=== PATIENT | male | born 1940 | race Caucasian/White ===

== ENCOUNTER 2019-02-27 15:53 | Inpatient (IN) ==
[2019-02-27] MEDS ORDERED: MAGNESIUM SULF RIDER 2 GM in PREMIX 1 EACH IV PRN (16:55)
[2019-02-27] MEDS ORDERED: POTASSIUM CHLORIDE 20 MEQ TABLET PO PRN (16:55)
[2019-02-27] MEDS ORDERED: ONDANSETRON 4 MG/2 ML VIAL IV PRN (16:55)
[2019-02-27] MEDS ORDERED: MORPHINE 4 MG/1 ML VIAL IV PRN (16:55)
[2019-02-27] MEDS ORDERED: BISACODYL 5 MG TABLET PO PRN (16:55)
[2019-02-27] MEDS ORDERED: ZALEPLON 5 MG CAPSULE PO PRN (16:55)
[2019-02-27] MEDS ORDERED: diphenhydrAMINE CAP 25 MG CAPSULE PO PRN (16:55)
[2019-02-27] MEDS ORDERED: MAGNESIUM SULF RIDER 4 GM in PREMIX 1 EACH IV PRN (16:55)
[2019-02-27] MEDS ORDERED: guaiFENesin/DM ER 600-30 MG TABLET PO PRN (16:55)
[2019-02-27] MEDS ORDERED: ACETAMINOPHEN 325 MG TABLET PO PRN (16:55)
[2019-02-27] MEDS ORDERED: LEUPROLIDE 30 MG IM SCH (17:15)
[2019-02-27 17:58] LABS: Troponin I < 0.015 NG/ML (0.00-0.045)
[2019-02-27] MEDS: PANTOPRAZOLE 40 MG TABLET PO SCH (18:27)
[2019-02-27 20:16] LABS: Troponin I < 0.015 NG/ML (0.00-0.045)
[2019-02-27] MEDS: ROSUVASTATIN 10 MG TABLET PO SCH (20:22)
[2019-02-27] MEDS: AMIODARONE 200 MG TABLET PO SCH (20:22)
[2019-02-27] MEDS: CLORAZEPATE 7.5 MG TABLET PO SCH (20:22)
[2019-02-27] MEDS: predniSONE 5 MG TABLET PO SCH (20:22)
[2019-02-27] MEDS: APIXABAN 5 MG TABLET PO SCH (20:23)
[2019-02-27] MEDS: DOCUSATE SODIUM 100 MG CAPSULE PO PRN (20:23)
[2019-02-27 23:25] LABS: Troponin I < 0.015 NG/ML (0.00-0.045)
[2019-02-28 05:02] LABS: Basophils % 0.4 % (0.0-0.8); Eosinophils # 0.2 10*3/uL (0.0-0.87); Eosinophils % 2.8 % (0.00-10.9); Hematocrit 40.8 VOL% (42.0-52.0); Hemoglobin 13.8 GM/DL (14.0-18.0); Immature Granulocytes % 0.4 %; Immature Granulocytes Absolute 0.03 #; Lymphocytes # 1.3 10*3/uL (1.4-4.0); Lymphocytes % 18.4 % (21.2-54.2); Mean Corpuscular HGB Conc 33.8 GM/DL (32-36); Mean Corpuscular Volume 98.1 FL (87-102); Mean Platelet Volume 10.3 FL (9.6-12.0); Monocytes % 8.5 % (1.7-12.7); Neutrophils % 69.5 % (38.7-73.9); Platelet Count 149 T/CUMM (130-400); Red Blood Count 4.16 MC/CUMM (3.8-5.5); Red Cell Distribution Width 14.3 % (9.3-17.3); White Blood Count 7.2 T/CUMM (4-12)
[2019-02-28 05:40] LABS: Bilirubin,Total 1.2 MG/DL (0.2-1.0); Calcium 8.6 MG/DL (8.5-10.1); Osmolality,Calculated 282.1 MOS/KG (273-304); Risk Ratio 2.47; Total Protein 5.7 G/DL (6.4-8.3)
[2019-02-28] MEDS ORDERED: POTASSIUM CHLORIDE RIDER 10 MEQ in PREMIX 1 EACH IV PRN (07:13)
[2019-02-28] MEDS ORDERED: MAGNESIUM SULF RIDER 2 GM in PREMIX 1 EACH IV PRN (07:13)
[2019-02-28] MEDS: SODIUM CHLORIDE 0.9% 1,000 ML IV SCH ×3 (07:57→23:31)
[2019-02-28] MEDS ORDERED: DIAZEPAM 5 MG TABLET PO ONE (10:09)
[2019-02-28] MEDS ORDERED: diphenhydrAMINE CAP 25 MG CAPSULE PO PRN (10:10)
[2019-02-28] MEDS ORDERED: LIDOCAINE 1% 20 ML VIAL ONE (12:57)
[2019-02-28] MEDS ORDERED: HEPARIN/NACL 0.9% 2 UNITS/ML 1,000 ML IV ONE (12:57)
[2019-02-28] MEDS: APIXABAN 5 MG TABLET PO SCH (13:25)
[2019-02-28] MEDS: DOCUSATE SODIUM 100 MG CAPSULE PO PRN ×2 (13:25→20:27)
[2019-02-28] MEDS: AMIODARONE 200 MG TABLET PO SCH ×2 (13:26→20:27)
[2019-02-28] MEDS: predniSONE 5 MG TABLET PO SCH ×2 (13:26→20:27)
[2019-02-28] MEDS: PANTOPRAZOLE 40 MG TABLET PO SCH (13:26)
[2019-02-28] MEDS: ASPIRIN EC 81 MG TABLET PO SCH (13:26)
[2019-02-28] MEDS: Abiraterone [Zytiga] 1,000 MG PO SCH (13:34)
[2019-02-28] MEDS ORDERED: HYDROmorphone 2 MG/1 ML VIAL ONE (13:54)
[2019-02-28] MEDS ORDERED: MIDAZOLAM 2 MG/2 ML VIAL ONE (13:54)
[2019-02-28] MEDS: BUMETANIDE 1 MG TABLET PO SCH (16:51)
[2019-02-28] MEDS: ROSUVASTATIN 10 MG TABLET PO SCH (20:27)
[2019-02-28] MEDS: CLORAZEPATE 7.5 MG TABLET PO SCH (20:27)
[2019-03-01] MEDS: SODIUM CHLORIDE 0.9% 1,000 ML IV SCH ×3 (00:40→16:55)
[2019-03-01 03:54] LABS: Basophils % 0.4 % (0.0-0.8); Eosinophils # 0.3 10*3/uL (0.0-0.87); Eosinophils % 2.6 % (0.00-10.9); Hematocrit 40.9 VOL% (42.0-52.0); Hemoglobin 13.8 GM/DL (14.0-18.0); Immature Granulocytes % 0.5 %; Immature Granulocytes Absolute 0.05 #; Lymphocytes # 0.9 10*3/uL (1.4-4.0); Lymphocytes % 8.8 % (21.2-54.2); Mean Corpuscular HGB Conc 33.7 GM/DL (32-36); Mean Corpuscular Volume 97.4 FL (87-102); Neutrophils % 79.7 % (38.7-73.9); Platelet Count 148 T/CUMM (130-400); White Blood Count 10.1 T/CUMM (4-12)
[2019-03-01 04:12] LABS: Calcium 8.5 MG/DL (8.5-10.1); Osmolality,Calculated 281.3 MOS/KG (273-304)
[2019-03-01] MEDS ORDERED: HEPARIN 5,000 UNIT/1 ML VIAL IV ONE (07:01)
[2019-03-01] MEDS: BUMETANIDE 1 MG TABLET PO SCH (08:28)
[2019-03-01] MEDS: PANTOPRAZOLE 40 MG TABLET PO SCH (08:29)
[2019-03-01] MEDS: AMIODARONE 200 MG TABLET PO SCH ×2 (08:30→20:21)
[2019-03-01] MEDS: predniSONE 5 MG TABLET PO SCH ×2 (08:30→20:21)
[2019-03-01] MEDS: ASPIRIN EC 81 MG TABLET PO SCH (08:30)
[2019-03-01] MEDS: HEPARIN DRIP 25,000 UNITS/500 ML PREMIX IV SCH (08:32)
[2019-03-01] MEDS: Abiraterone [Zytiga] 1,000 MG PO SCH (09:19)
[2019-03-01] MEDS: HEPARIN 5,000 UNIT/1 ML VIAL IV PRN (13:45)
[2019-03-01] MEDS: DOCUSATE SODIUM 100 MG CAPSULE PO PRN (20:21)
[2019-03-01] MEDS: CLORAZEPATE 7.5 MG TABLET PO SCH (20:21)
[2019-03-01] MEDS: ROSUVASTATIN 10 MG TABLET PO SCH (20:21)
[2019-03-02] MEDS: SODIUM CHLORIDE 0.9% 1,000 ML IV SCH ×3 (00:39→08:39)
[2019-03-02] MEDS: HEPARIN 5,000 UNIT/1 ML VIAL IV PRN (01:27)
[2019-03-02 03:46] LABS: Basophils % 0.3 % (0.0-0.8); Eosinophils # 0.5 10*3/uL (0.0-0.87); Eosinophils % 6.2 % (0.00-10.9); Hematocrit 39.5 VOL% (42.0-52.0); Hemoglobin 12.8 GM/DL (14.0-18.0); Immature Granulocytes % 0.3 %; Immature Granulocytes Absolute 0.03 #; Lymphocytes # 0.9 10*3/uL (1.4-4.0); Lymphocytes % 10.8 % (21.2-54.2); Mean Corpuscular HGB Conc 32.4 GM/DL (32-36); Mean Platelet Volume 9.5 FL (9.6-12.0); Monocytes % 7.5 % (1.7-12.7); Neutrophils % 74.9 % (38.7-73.9); Platelet Count 139 T/CUMM (130-400); Red Blood Count 3.99 MC/CUMM (3.8-5.5); Red Cell Distribution Width 14.1 % (9.3-17.3); White Blood Count 8.7 T/CUMM (4-12)
[2019-03-02 04:03] LABS: Calcium 8.2 MG/DL (8.5-10.1); Osmolality,Calculated 287.8 MOS/KG (273-304)
[2019-03-02] MEDS: HEPARIN DRIP 25,000 UNITS/500 ML PREMIX IV SCH ×2 (08:06→11:25)
[2019-03-02] MEDS: predniSONE 5 MG TABLET PO SCH ×2 (08:40→20:29)
[2019-03-02] MEDS: PANTOPRAZOLE 40 MG TABLET PO SCH (08:40)
[2019-03-02] MEDS: AMIODARONE 200 MG TABLET PO SCH ×2 (08:40→20:29)
[2019-03-02] MEDS: BUMETANIDE 1 MG TABLET PO SCH (08:40)
[2019-03-02] MEDS: ASPIRIN EC 81 MG TABLET PO SCH (08:40)
[2019-03-02] MEDS: Abiraterone [Zytiga] 1,000 MG PO SCH (11:33)
[2019-03-02] MEDS: CHLORHEXIDINE 4% SOLN 118 ML BOTTLE TOP SCH ×2 (16:23→20:29)
[2019-03-02] MEDS: CLORAZEPATE 7.5 MG TABLET PO SCH (20:29)
[2019-03-02] MEDS: ROSUVASTATIN 10 MG TABLET PO SCH (20:29)
[2019-03-03] MEDS: CHLORHEXIDINE 0.12% ORAL RINSE 60 ML BOTTLE SWISH/SPIT SCH ×3 (00:34→22:00)
[2019-03-03] MEDS ORDERED: PAPAVERINE 60 MG/2 ML VIAL ONE (04:27)
[2019-03-03] MEDS ORDERED: TISSUE ADHESIVE 1 EACH APPLICATOR TOP ONE (04:27)
[2019-03-03] MEDS ORDERED: VANCOMYCIN 1,000 MG VIAL ONE (04:27)
[2019-03-03 05:08] LABS: Basophils % 0.4 % (0.0-0.8); Eosinophils # 0.5 10*3/uL (0.0-0.87); Eosinophils % 6.1 % (0.00-10.9); Hematocrit 41.3 VOL% (42.0-52.0); Hemoglobin 13.5 GM/DL (14.0-18.0); Immature Granulocytes % 0.6 %; Immature Granulocytes Absolute 0.05 #; Lymphocytes # 0.9 10*3/uL (1.4-4.0); Mean Corpuscular HGB Conc 32.7 GM/DL (32-36); Mean Corpuscular Volume 99.5 FL (87-102); Monocytes % 7.6 % (1.7-12.7); Neutrophils % 74.3 % (38.7-73.9); Platelet Count 149 T/CUMM (130-400); Red Blood Count 4.15 MC/CUMM (3.8-5.5); Red Cell Distribution Width 14.3 % (9.3-17.3); White Blood Count 8.5 T/CUMM (4-12)
[2019-03-03] MEDS ORDERED: CEFUROXIME INJ 1,500 MG in SYRINGE 1 EACH IV ONE (06:00)
[2019-03-03] MEDS ORDERED: PHENYLEPHRINE DRIP 20 MG/250 ML PREMIX IV ONE ×2 (06:05→15:54)
[2019-03-03] MEDS ORDERED: HEPARIN/NACL 0.9% 2 UNITS/ML 500 ML IV ONE ×2 (06:05→15:54)
[2019-03-03] MEDS ORDERED: NITROGLYCERIN DRIP 50 MG/250 ML BOTTLE IV ONE ×2 (06:06→15:56)
[2019-03-03 08:06] LABS: ABG Base Excess 3.6 MMOL/L (-2.5-2.5); ABG HCO3 28.4 MMOL/L (20-26); ABG Oxygen Saturation 95.6 % (95-100); ABG PCO2 43.3 MM HG (35-48); ABG PH 7.434 (7.35-7.45); ABG TCO2 29.7 MMOL/L (23-27); Allen Test Positive
[2019-03-03] MEDS ORDERED: SODIUM BICARBONATE 50 MEQ/50 ML VIAL IV ONE ×2 (08:09→15:33)
[2019-03-03] MEDS ORDERED: PHENYLEPHRINE DRIP 40 MG/250 ML PREMIX IV ONE (08:09)
[2019-03-03] MEDS ORDERED: LIDOCAINE 100 MG/5 ML SYRINGE ONE (08:10)
[2019-03-03] MEDS ORDERED: POTASSIUM CHLORIDE RIDER 100 ML IV ONE (08:10)
[2019-03-03] MEDS ORDERED: CALCIUM CHLORIDE 1,000 MG/10 ML SYRINGE IV ONE (08:10)
[2019-03-03] MEDS ORDERED: EPINEPHrine 1 MG/10 ML SYRINGE ONE (08:10)
[2019-03-03] MEDS ORDERED: ALBUMIN 5% 12.5 GM/250 ML VIAL IV ONE (08:10)
[2019-03-03] MEDS ORDERED: ATROPINE 1 MG/10 ML SYRINGE ONE (08:10)
[2019-03-03] MEDS ORDERED: ALBUTEROL/IPRATROPIUM 3 ML NEB RESP TX ONE (08:44)
[2019-03-03] MEDS: ASPIRIN EC 81 MG TABLET PO SCH (08:54)
[2019-03-03] MEDS: BUMETANIDE 1 MG TABLET PO SCH (08:55)
[2019-03-03] MEDS: Abiraterone [Zytiga] 1,000 MG PO SCH (08:57)
[2019-03-03] MEDS: predniSONE 5 MG TABLET PO SCH (08:57)
[2019-03-03] MEDS: PANTOPRAZOLE 40 MG TABLET PO SCH (08:57)
[2019-03-03] MEDS: CHLORHEXIDINE 4% SOLN 118 ML BOTTLE TOP SCH (09:15)
[2019-03-03] MEDS ORDERED: DIAZEPAM 5 MG TABLET PO ONE (10:00)
[2019-03-03] MEDS: AMIODARONE 200 MG TABLET PO SCH (10:34)
[2019-03-03] MEDS: SODIUM CHLORIDE 0.9% 1,000 ML IV SCH ×2 (11:01→18:36)
[2019-03-03] MEDS ORDERED: CEFUROXIME INJ 1,500 MG in SYRINGE 1 EACH IV SCH (11:30)
[2019-03-03 12:37] LABS: ABG Base Excess 3.5 MMOL/L (-2.5-2.5); ABG HCO3 27.5 MMOL/L (20-26); ABG Oxygen Saturation 99.8 % (95-100); ABG PCO2 40.3 MM HG (35-48); ABG PH 7.445 (7.35-7.45); ABG TCO2 23.9 MMOL/L (23-27); Glucose Heart Surgery 97 MG/DL (74-106); Hematocrit Heart Surgery 41.6 PERCENT (42-52); Hemoglobin Heart Surgery 13.5 G/DL (14.0-18.0); Ionized Calcium Arterial 1.29 MMOL/L (1.21-1.46); PCO2 Patient Temp Arterial 40.3 MMHG; PH Patient Temp Arterial 7.445; Patient Temperature 37 CELCIUS; Potassium Heart/CVR 3.8 MMOL/L (3.5-5.1); Sodium Heart/CVR 139 MMOL/L (135-145)
[2019-03-03 13:46] LABS: Apearance,Urine Slightly Hazy (Clear); Bilirubin,Urine Negative (Negative); Blood, Urine Moderate mg/dL (Negative); Glucose,Urine (UA) Negative (Negative); Ketones,Urine Negative (Negative); Nitrite,Urine Negative (Negative); Protein,Urine Negative; RBC,Urine 16 /HPF (0-4); Urine Color Yellow (Yellow); Urine Specific Gravity 1.011 (1.001-1.035); Urine Urobilinogen < 2.0 EU/DL (0.2-1.0); WBC,Urine 137 /HPF (0-6)
[2019-03-03 14:14] LABS: Glucose Heart Surgery 261 MG/DL (74-106); Hemoglobin Heart Surgery 10.3 G/DL (14.0-18.0); Potassium Heart/CVR 4.2 MMOL/L (3.5-5.1); Sodium Heart/CVR 130 MMOL/L (135-145); VBG Base Excess 3.4 MEQ/L (0-4); VBG HCO3 26.4 MEQ/L (24-28); VBG Oxygen Saturation 83.2 %; VBG PH 7.508; VBG PO2 43.3 MMHG (17-40)
[2019-03-03 14:44] LABS: Hematocrit Heart Surgery 27.7 PERCENT (42-52); Hemoglobin Heart Surgery 8.9 G/DL (14.0-18.0); PCO2 Patient Temp Venous 32.7 MM HG; PH Patient Temp Venous 7.521; PO2 Patient Temp Venous 28.7 MM HG; Potassium Heart/CVR 4.4 MMOL/L (3.5-5.1); VBG Base Excess 4.2 MEQ/L (0-4); VBG HCO3 27.8 MEQ/L (24-28); VBG Oxygen Saturation 76.4 %; VBG PCO2 39.6 MMHG (41-51); VBG PH 7.461
[2019-03-03 15:15] LABS: Hematocrit Heart Surgery 30.1 PERCENT (42-52); Hemoglobin Heart Surgery 9.7 G/DL (14.0-18.0); PCO2 Patient Temp Venous 40.9 MM HG; PH Patient Temp Venous 7.451; PO2 Patient Temp Venous 43.2 MM HG; Potassium Heart/CVR 4.6 MMOL/L (3.5-5.1); VBG Base Excess 4.2 MEQ/L (0-4); VBG HCO3 27.9 MEQ/L (24-28); VBG Oxygen Saturation 81.8 %; VBG PCO2 40.9 MMHG (41-51); VBG PH 7.451; VBG PO2 43.2 MMHG (17-40)
[2019-03-03] MEDS ORDERED: DEXTROSE 5% KCL 20 MEQ 40 MEQ/2,000 ML BAG IV ONE (15:32)
[2019-03-03] MEDS ORDERED: methylPREDNISolone SOD SUC 1,000 MG/8 ML VIAL ONE (15:33)
[2019-03-03] MEDS ORDERED: MANNITOL 12.5 GM/50 ML VIAL IV ONE (15:33)
[2019-03-03] MEDS ORDERED: HEPARIN 10,000 UNIT/10 ML VIAL ONE ×2 (15:33→15:55)
[2019-03-03] MEDS ORDERED: PROTAMINE SULFATE 250 MG/25 ML VIAL IV ONE (15:33)
[2019-03-03] MEDS ORDERED: FUROSEMIDE 20 MG/2 ML VIAL ONE (15:33)
[2019-03-03] MEDS ORDERED: MAGNESIUM SULFATE 5 GM/10 ML VIAL IV ONE (15:33)
[2019-03-03] MEDS ORDERED: ALBUMIN 25% 25 GM/100 ML VIAL IV ONE (15:33)
[2019-03-03 15:43] LABS: ABG Base Excess -0.4 MMOL/L (-2.5-2.5); ABG HCO3 24.1 MMOL/L (20-26); ABG Oxygen Saturation 99.6 % (95-100); ABG PCO2 33.1 MM HG (35-48); ABG TCO2 20.9 MMOL/L (23-27); Glucose Heart Surgery 268 MG/DL (74-106); Hematocrit Heart Surgery 30.7 PERCENT (42-52); Hemoglobin Heart Surgery 9.9 G/DL (14.0-18.0); Ionized Calcium Arterial 1.38 MMOL/L (1.21-1.46); PCO2 Patient Temp Arterial 33.1 MMHG; Patient Temperature 37 CELCIUS; Potassium Heart/CVR 3.9 MMOL/L (3.5-5.1); Sodium Heart/CVR 132 MMOL/L (135-145)
[2019-03-03] MEDS ORDERED: THROMBIN TOPICAL (RECOMBINANT) 5,000 UNIT VIAL TOP ONE (15:46)
[2019-03-03] MEDS ORDERED: CALCIUM CHLORIDE 1,000 MG/10 ML VIAL IV ONE (15:54)
[2019-03-03] MEDS ORDERED: MIDAZOLAM 10 MG/2 ML VIAL ONE (15:55)
[2019-03-03] MEDS ORDERED: ePHEDrine 50 MG/ML AMP ONE ×2 (15:55→16:37)
[2019-03-03] MEDS ORDERED: MINERAL OIL/PETROLATUM OPH OINT 3.5 GM TUBE ONE (15:55)
[2019-03-03] MEDS ORDERED: ETOMIDATE 40 MG/20 ML VIAL IV ONE (15:56)
[2019-03-03] MEDS ORDERED: SODIUM CHLORIDE 0.9% 250 ML IV ONE (15:56)
[2019-03-03] MEDS ORDERED: SODIUM CHLORIDE 0.9% 1,000 ML IV ONE (15:56)
[2019-03-03] MEDS ORDERED: PHENYLEPHRINE 1 MG/10 ML SYRINGE IV ONE (15:56)
[2019-03-03] MEDS ORDERED: LACTATED RINGERS 1,000 ML IV ONE (15:56)
[2019-03-03] MEDS ORDERED: VECURONIUM 10 MG VIAL IV ONE (15:56)
[2019-03-03] MEDS: SODIUM CHLORIDE 0.45% 1,000 ML IV SCH (16:35)
[2019-03-03] MEDS ORDERED: SEVOFLURANE 1 UNIT/15 MINUTE INH ONE (16:37)
[2019-03-03] MEDS: PHENYLEPHRINE DRIP 40 MG/250 ML PREMIX IV PRN (16:40)
[2019-03-03] MEDS: SODIUM CHLORIDE 0.9% 1,000 ML IV PRN ×2 (16:52→18:19)
[2019-03-03] MEDS ORDERED: ACETAMINOPHEN 650 MG SUPP RECTAL PRN (17:12)
[2019-03-03] MEDS ORDERED: INSULIN REGULAR 100 UNIT/ML IV PRN (17:12)
[2019-03-03] MEDS ORDERED: CALCIUM CHLORIDE 1,000 MG/10 ML SYRINGE IV PRN (17:12)
[2019-03-03] MEDS ORDERED: POTASSIUM CHLORIDE RIDER 10 MEQ in PREMIX 1 EACH IV PRN (17:12)
[2019-03-03] MEDS ORDERED: DEXTROSE 10% 250 ML BAG IV PRN ×2 (17:12)
[2019-03-03] MEDS ORDERED: MORPHINE 10 MG/1 ML VIAL IV PRN (17:12)
[2019-03-03] MEDS ORDERED: POTASSIUM CHLORIDE RIDER 20 MEQ in PREMIX 1 EACH IV PRN (17:12)
[2019-03-03] MEDS ORDERED: MAGNESIUM SULF RIDER 2 GM in PREMIX 1 EACH IV PRN (17:12)
[2019-03-03] MEDS ORDERED: MIDAZOLAM 2 MG/2 ML VIAL IV PRN (17:12)
[2019-03-03] MEDS ORDERED: MAGNESIUM SULF RIDER 4 GM in PREMIX 1 EACH IV PRN (17:12)
[2019-03-03] MEDS ORDERED: SODIUM CHLORIDE 0.9% 250 ML IV PRN (17:12)
[2019-03-03] MEDS ORDERED: CHLORHEXIDINE 4% SOLN 118 ML BOTTLE TOP PRN (17:12)
[2019-03-03] MEDS ORDERED: ONDANSETRON 4 MG/2 ML VIAL IV PRN (17:12)
[2019-03-03 17:22] LABS: Basophils % 0.1 % (0.0-0.8); Eosinophils # 0.2 10*3/uL (0.0-0.87); Eosinophils % 1.6 % (0.00-10.9); Hematocrit 35.9 VOL% (42.0-52.0); Hemoglobin 11.7 GM/DL (14.0-18.0); Immature Granulocytes % 0.9 %; Immature Granulocytes Absolute 0.14 #; Lymphocytes # 0.9 10*3/uL (1.4-4.0); Lymphocytes % 6.2 % (21.2-54.2); Mean Corpuscular HGB Conc 32.6 GM/DL (32-36); Mean Corpuscular Volume 100.6 FL (87-102); Mean Platelet Volume 9.8 FL (9.6-12.0); Monocytes % 5.5 % (1.7-12.7); Neutrophils % 85.7 % (38.7-73.9); Platelet Count 180 T/CUMM (130-400); Red Blood Count 3.57 MC/CUMM (3.8-5.5); Red Cell Distribution Width 14.2 % (9.3-17.3); White Blood Count 14.8 T/CUMM (4-12)
[2019-03-03 17:25] LABS: ABG Base Excess -0.7 MMOL/L (-2.5-2.5); ABG HCO3 23.8 MMOL/L (20-26); ABG Oxygen Saturation 95.9 % (95-100); ABG PCO2 46.4 MM HG (35-48); ABG PH 7.346 (7.35-7.45); ABG PO2 87.7 MM HG (80-95); ABG TCO2 22.4 MMOL/L (23-27); Glucose Heart Surgery 258 MG/DL (74-106); Hematocrit Heart Surgery 39.1 PERCENT (42-52); Hemoglobin Heart Surgery 12.7 G/DL (14.0-18.0); Potassium Heart/CVR 3.9 MMOL/L (3.5-5.1)
[2019-03-03 17:30] LABS: INR 1.1; PT Patient Result 11.8 SECS; Partial Thromboplastin Time 28.7 SECS (0-40)
[2019-03-03] MEDS ORDERED: SODIUM CHLORIDE 0.45% 1,000 ML IV SCH (17:30)
[2019-03-03] MEDS ORDERED: CALCIUM GLUCONATE 1,000 MG in SODIUM CHLORIDE 0.9% 100 ML IV ONE ×2 (17:42→18:30)
[2019-03-03 17:44] LABS: Blood Urea Nitrogen 11 MG/DL (7-18); Calcium 9.4 MG/DL (8.5-10.1); Glucose 239 MG/DL (74-106); Osmolality,Calculated 281.7 MOS/KG (273-304)
[2019-03-03] MEDS: ALBUMIN 5% 12.5 GM in PREMIX 1 EACH IV PRN ×4 (17:46→21:36)
[2019-03-03] MEDS ORDERED: INSULIN REGULAR DRIP 100 ML IV PRN (17:58)
[2019-03-03] MEDS ORDERED: ASPIRIN 325 MG TABLET PO ONE (18:03)
[2019-03-03] MEDS: MORPHINE 4 MG/1 ML VIAL IV PRN (18:27)
[2019-03-04] MEDS: PHENYLEPHRINE DRIP 40 MG/250 ML PREMIX IV PRN (00:35)
[2019-03-04] MEDS: CEFUROXIME INJ 1,500 MG in SYRINGE 1 EACH IV SCH ×2 (01:38→12:21)
[2019-03-04 03:43] LABS: Basophils % 0.1 % (0.0-0.8); Hemoglobin 10.4 GM/DL (14.0-18.0); Immature Granulocytes % 0.8 %; Immature Granulocytes Absolute 0.12 #; Lymphocytes # 0.4 10*3/uL (1.4-4.0); Lymphocytes % 2.9 % (21.2-54.2); Mean Corpuscular HGB Conc 32.5 GM/DL (32-36); Mean Corpuscular Volume 100.6 FL (87-102); Mean Platelet Volume 10.2 FL (9.6-12.0); Monocytes % 6.2 % (1.7-12.7); Platelet Count 181 T/CUMM (130-400); Red Blood Count 3.18 MC/CUMM (3.8-5.5); Red Cell Distribution Width 14.4 % (9.3-17.3); White Blood Count 14.7 T/CUMM (4-12)
[2019-03-04 03:53] LABS: Calcium 8.6 MG/DL (8.5-10.1); Osmolality,Calculated 283.1 MOS/KG (273-304)
[2019-03-04 04:28] LABS: Band Neutrophils 3 % (0-10); Lymphocytes 2 % (20-55); Segmented Neutrophils 91 % (50-85); Total Cells Counted 100
[2019-03-04 04:29] LABS: Platelet Estimate Normal
[2019-03-04 04:31] LABS: ABG Base Excess -2.8 MMOL/L (-2.5-2.5); ABG Oxygen Saturation 95.8 % (95-100); ABG PCO2 35.3 MM HG (35-48); ABG PH 7.393 (7.35-7.45); ABG PO2 77.4 MM HG (80-95); ABG TCO2 19.4 MMOL/L (23-27); Glucose Heart Surgery 138 MG/DL (74-106); Hematocrit Heart Surgery 33.9 PERCENT (42-52); Potassium Heart/CVR 4.2 MMOL/L (3.5-5.1)
[2019-03-04] MEDS ORDERED: DIAZEPAM 5 MG TABLET PO ONE (06:00)
[2019-03-04] MEDS: SODIUM CHLORIDE 0.45% 1,000 ML IV SCH ×2 (06:06→08:33)
[2019-03-04] MEDS ORDERED: FUROSEMIDE 40 MG/4 ML VIAL IV ONE (07:02)
[2019-03-04] MEDS ORDERED: LACTATED RINGERS 500 ML IV ONE (08:20)
[2019-03-04] MEDS: INSULIN REGULAR 100 UNIT/ML SUBCUT SCH ×4 (08:30→20:34)
[2019-03-04] MEDS: ASPIRIN EC 325 MG TABLET PO SCH (08:42)
[2019-03-04] MEDS: FAMOTIDINE 20 MG/2 ML VIAL IV SCH ×2 (08:43→20:32)
[2019-03-04] MEDS: CHLORHEXIDINE 0.12% ORAL RINSE 60 ML BOTTLE SWISH/SPIT SCH ×2 (08:44→20:33)
[2019-03-04] MEDS ORDERED: FUROSEMIDE 40 MG TABLET PO SCH (09:00)
[2019-03-04] MEDS ORDERED: ASPIRIN 325 MG TABLET PO SCH (09:00)
[2019-03-04] MEDS: ATORVASTATIN 40 MG TABLET PO SCH (20:32)
[2019-03-04] MEDS ORDERED: diphenhydrAMINE CAP 50 MG CAPSULE PO ONE (20:40)
[2019-03-04] MEDS ORDERED: ALBUTEROL/IPRATROPIUM 3 ML NEB RESP TX STA (21:14)
[2019-03-05] MEDS: INSULIN REGULAR 100 UNIT/ML SUBCUT SCH ×6 (00:35→21:01)
[2019-03-05] MEDS: CEFUROXIME INJ 1,500 MG in SYRINGE 1 EACH IV SCH (01:31)
[2019-03-05 04:00] LABS: Calcium 8.3 MG/DL (8.5-10.1); Osmolality,Calculated 280.5 MOS/KG (273-304)
[2019-03-05 04:02] LABS: Basophils % 0.1 % (0.0-0.8); Hematocrit 33.5 VOL% (42.0-52.0); Hemoglobin 11.1 GM/DL (14.0-18.0); Immature Granulocytes % 0.9 %; Immature Granulocytes Absolute 0.13 #; Lymphocytes # 1.2 10*3/uL (1.4-4.0); Lymphocytes % 8.8 % (21.2-54.2); Mean Corpuscular HGB Conc 33.1 GM/DL (32-36); Mean Corpuscular Volume 101.2 FL (87-102); Monocytes % 9.7 % (1.7-12.7); Neutrophils % 80.5 % (38.7-73.9); Platelet Count 100 T/CUMM (130-400); Red Blood Count 3.31 MC/CUMM (3.8-5.5); Red Cell Distribution Width 14.9 % (9.3-17.3)
[2019-03-05] MEDS: MORPHINE 4 MG/1 ML VIAL IV PRN ×2 (07:13→09:13)
[2019-03-05] MEDS ORDERED: METOPROLOL TARTRATE 5 MG/5 ML VIAL IV ONE (08:47)
[2019-03-05] MEDS ORDERED: ACETYLCYSTEINE 20% 800 MG/4 ML VIAL RESP TX ONE (08:47)
[2019-03-05] MEDS: FAMOTIDINE 20 MG/2 ML VIAL IV SCH ×2 (08:58→21:00)
[2019-03-05] MEDS: ASPIRIN EC 325 MG TABLET PO SCH (08:59)
[2019-03-05] MEDS: METOPROLOL TARTRATE 25 MG TABLET PO SCH ×2 (08:59→21:01)
[2019-03-05] MEDS ORDERED: FUROSEMIDE 40 MG/4 ML VIAL IV SCH (09:00)
[2019-03-05] MEDS: CHLORHEXIDINE 0.12% ORAL RINSE 60 ML BOTTLE SWISH/SPIT SCH ×2 (09:00→21:00)
[2019-03-05 09:18] LABS: Allen Test Positive; Pt O2 Delivery Device Other
[2019-03-05 09:19] LABS: ABG Base Excess 3.5 MMOL/L (-2.5-2.5); ABG HCO3 27.5 MMOL/L (20-26); ABG Oxygen Saturation 92.7 % (95-100); ABG PCO2 42.2 MM HG (35-48); ABG PH 7.432 (7.35-7.45); ABG TCO2 25.3 MMOL/L (23-27)
[2019-03-05] MEDS: ALBUTEROL/IPRATROPIUM 3 ML NEB RESP TX SCH ×2 (13:30→18:59)
[2019-03-05] MEDS: ALBUMIN 5% 12.5 GM in PREMIX 1 EACH IV PRN (16:42)
[2019-03-05] MEDS: ATORVASTATIN 40 MG TABLET PO SCH (20:58)
[2019-03-06] MEDS: ALBUTEROL/IPRATROPIUM 3 ML NEB RESP TX SCH ×4 (00:44→19:06)
[2019-03-06] MEDS: INSULIN REGULAR 100 UNIT/ML SUBCUT SCH ×5 (02:20→17:32)
[2019-03-06 05:29] LABS: Basophils % 0.1 % (0.0-0.8); Eosinophils % 0.1 % (0.00-10.9); Hematocrit 31.1 VOL% (42.0-52.0); Hemoglobin 10.4 GM/DL (14.0-18.0); Immature Granulocytes % 1.1 %; Immature Granulocytes Absolute 0.18 #; Lymphocytes # 1.2 10*3/uL (1.4-4.0); Lymphocytes % 7.1 % (21.2-54.2); Mean Corpuscular HGB Conc 33.4 GM/DL (32-36); Mean Corpuscular Volume 97.8 FL (87-102); Mean Platelet Volume 10.6 FL (9.6-12.0); Monocytes % 7.4 % (1.7-12.7); Neutrophils % 84.2 % (38.7-73.9); Platelet Count 145 T/CUMM (130-400); Red Blood Count 3.18 MC/CUMM (3.8-5.5); Red Cell Distribution Width 14.5 % (9.3-17.3); White Blood Count 16.5 T/CUMM (4-12)
[2019-03-06 06:04] LABS: Calcium 8.5 MG/DL (8.5-10.1); Osmolality,Calculated 281.4 MOS/KG (273-304)
[2019-03-06] MEDS ORDERED: AMIODARONE INJ 150 MG in DEXTROSE 5% 100 ML IV ONE (07:35)
[2019-03-06] MEDS ORDERED: AMIODARONE INJ 450 MG in DEXTROSE 5% 241 ML IV SCH (08:00)
[2019-03-06] MEDS: FAMOTIDINE 20 MG/2 ML VIAL IV SCH ×2 (08:47→21:08)
[2019-03-06] MEDS: FUROSEMIDE 40 MG/4 ML VIAL IV SCH ×2 (08:50→16:49)
[2019-03-06] MEDS: ASPIRIN EC 325 MG TABLET PO SCH (08:53)
[2019-03-06] MEDS: APIXABAN 2.5 MG TABLET PO SCH ×2 (09:12→21:08)
[2019-03-06] MEDS: CARVEDILOL 3.125 MG TABLET PO SCH ×2 (09:12→21:09)
[2019-03-06] MEDS: CHLORHEXIDINE 0.12% ORAL RINSE 60 ML BOTTLE SWISH/SPIT SCH ×2 (09:12→21:09)
[2019-03-06] MEDS ORDERED: MAGNESIUM HYDROXIDE SUSP 30 ML UDCUP PO PRN (13:37)
[2019-03-06 13:47] LABS: ABG Base Excess 6.6 MMOL/L (-2.5-2.5); ABG HCO3 30.2 MMOL/L (20-26); ABG PCO2 40.1 MM HG (35-48); ABG PH 7.489 (7.35-7.45); ABG PO2 54.5 MM HG (80-95); ABG TCO2 27.3 MMOL/L (23-27); Allen Test Positive; Pt O2 Delivery Device Other
[2019-03-06] MEDS: PIPERACILLIN/TAZOBACTAM 3,375 MG in SODIUM CHLORIDE 0.9% 100 ML IV SCH (16:43)
[2019-03-06] MEDS: methylPREDNISolone SOD SUC 40 MG/1 ML VIAL IV SCH (16:44)
[2019-03-06] MEDS: ATORVASTATIN 40 MG TABLET PO SCH (21:08)
[2019-03-07] MEDS: ALBUTEROL/IPRATROPIUM 3 ML NEB RESP TX SCH ×4 (00:35→20:06)
[2019-03-07] MEDS: INSULIN REGULAR 100 UNIT/ML SUBCUT SCH ×7 (00:36→23:00)
[2019-03-07] MEDS: methylPREDNISolone SOD SUC 40 MG/1 ML VIAL IV SCH ×3 (01:09→15:52)
[2019-03-07] MEDS: PIPERACILLIN/TAZOBACTAM 3,375 MG in SODIUM CHLORIDE 0.9% 100 ML IV SCH ×3 (01:09→15:56)
[2019-03-07 05:27] LABS: Basophils % 0.1 % (0.0-0.8); Hematocrit 30.4 VOL% (42.0-52.0); Immature Granulocytes % 1.1 %; Immature Granulocytes Absolute 0.12 #; Lymphocytes # 0.5 10*3/uL (1.4-4.0); Lymphocytes % 4.7 % (21.2-54.2); Mean Corpuscular HGB Conc 32.9 GM/DL (32-36); Mean Corpuscular Volume 99.3 FL (87-102); Mean Platelet Volume 10.6 FL (9.6-12.0); Monocytes % 2.8 % (1.7-12.7); Neutrophils % 91.3 % (38.7-73.9); Platelet Count 150 T/CUMM (130-400); Red Blood Count 3.06 MC/CUMM (3.8-5.5); Red Cell Distribution Width 14.1 % (9.3-17.3); White Blood Count 11.2 T/CUMM (4-12)
[2019-03-07 05:28] LABS: Calcium 8.3 MG/DL (8.5-10.1); Osmolality,Calculated 290.1 MOS/KG (273-304)
[2019-03-07 05:58] LABS: Band Neutrophils 4 % (0-10); Lymphocytes 4 % (20-55); Platelet Estimate Adequate; Segmented Neutrophils 89 % (50-85); Total Cells Counted 100
[2019-03-07] MEDS: FUROSEMIDE 40 MG/4 ML VIAL IV SCH ×2 (08:48→15:54)
[2019-03-07] MEDS: FAMOTIDINE 20 MG/2 ML VIAL IV SCH ×2 (08:53→22:57)
[2019-03-07] MEDS: CARVEDILOL 3.125 MG TABLET PO SCH ×2 (08:57→23:02)
[2019-03-07] MEDS: ASPIRIN EC 325 MG TABLET PO SCH (08:57)
[2019-03-07] MEDS: APIXABAN 2.5 MG TABLET PO SCH ×2 (08:57→23:02)
[2019-03-07] MEDS: AMIODARONE INJ 450 MG in DEXTROSE 5% 241 ML IV SCH (09:02)
[2019-03-07] MEDS: CHLORHEXIDINE 0.12% ORAL RINSE 60 ML BOTTLE SWISH/SPIT SCH ×2 (09:08→23:07)
[2019-03-07] MEDS: ATORVASTATIN 40 MG TABLET PO SCH (23:02)
[2019-03-08] MEDS: AMIODARONE INJ 450 MG in DEXTROSE 5% 241 ML IV SCH (00:11)
[2019-03-08] MEDS: methylPREDNISolone SOD SUC 40 MG/1 ML VIAL IV SCH ×3 (00:47→21:41)
[2019-03-08] MEDS: PIPERACILLIN/TAZOBACTAM 3,375 MG in SODIUM CHLORIDE 0.9% 100 ML IV SCH ×3 (00:48→16:32)
[2019-03-08] MEDS: INSULIN REGULAR 100 UNIT/ML SUBCUT SCH ×6 (01:29→21:45)
[2019-03-08] MEDS: ALBUTEROL/IPRATROPIUM 3 ML NEB RESP TX SCH ×4 (01:34→19:10)
[2019-03-08 05:29] LABS: Basophils % 0.1 % (0.0-0.8); Hematocrit 27.9 VOL% (42.0-52.0); Hemoglobin 9.4 GM/DL (14.0-18.0); Immature Granulocytes % 0.6 %; Immature Granulocytes Absolute 0.09 #; Lymphocytes # 0.5 10*3/uL (1.4-4.0); Lymphocytes % 3.5 % (21.2-54.2); Mean Corpuscular HGB Conc 33.7 GM/DL (32-36); Mean Corpuscular Volume 97.6 FL (87-102); Mean Platelet Volume 10.4 FL (9.6-12.0); Monocytes % 4.6 % (1.7-12.7); Neutrophils % 91.2 % (38.7-73.9); Platelet Count 191 T/CUMM (130-400); Red Blood Count 2.86 MC/CUMM (3.8-5.5); Red Cell Distribution Width 14.1 % (9.3-17.3); White Blood Count 13.9 T/CUMM (4-12)
[2019-03-08 05:54] LABS: Calcium 8.5 MG/DL (8.5-10.1); Osmolality,Calculated 290.3 MOS/KG (273-304)
[2019-03-08 07:37] LABS: Band Neutrophils 1 % (0-10); Lymphocytes 1 % (20-55); Segmented Neutrophils 92 % (50-85); Total Cells Counted 100
[2019-03-08 07:38] LABS: Microcytosis Slight; Ovalocytes Few; Platelet Estimate Normal; Polychromasia Slight
[2019-03-08] MEDS: FUROSEMIDE 40 MG/4 ML VIAL IV SCH ×2 (08:56→16:29)
[2019-03-08] MEDS: FAMOTIDINE 20 MG/2 ML VIAL IV SCH ×2 (08:59→21:44)
[2019-03-08] MEDS: APIXABAN 2.5 MG TABLET PO SCH ×2 (09:02→21:38)
[2019-03-08] MEDS: CARVEDILOL 3.125 MG TABLET PO SCH ×2 (09:02→21:39)
[2019-03-08] MEDS: CHLORHEXIDINE 0.12% ORAL RINSE 60 ML BOTTLE SWISH/SPIT SCH ×2 (09:02→21:58)
[2019-03-08] MEDS: ASPIRIN EC 325 MG TABLET PO SCH (09:02)
[2019-03-08] MEDS: AMIODARONE 200 MG TABLET PO SCH ×2 (09:51→21:38)
[2019-03-08] MEDS: ATORVASTATIN 40 MG TABLET PO SCH (21:38)
[2019-03-09] MEDS: ALBUTEROL/IPRATROPIUM 3 ML NEB RESP TX SCH ×4 (00:50→19:25)
[2019-03-09] MEDS: INSULIN REGULAR 100 UNIT/ML SUBCUT SCH ×6 (01:11→22:51)
[2019-03-09] MEDS: PIPERACILLIN/TAZOBACTAM 3,375 MG in SODIUM CHLORIDE 0.9% 100 ML IV SCH ×3 (01:25→16:28)
[2019-03-09 05:09] LABS: Basophils % 0.1 % (0.0-0.8); Hematocrit 28.2 VOL% (42.0-52.0); Hemoglobin 9.4 GM/DL (14.0-18.0); Immature Granulocytes % 0.8 %; Immature Granulocytes Absolute 0.11 #; Lymphocytes # 0.5 10*3/uL (1.4-4.0); Lymphocytes % 3.4 % (21.2-54.2); Mean Corpuscular HGB Conc 33.3 GM/DL (32-36); Mean Corpuscular Volume 98.3 FL (87-102); Mean Platelet Volume 10.2 FL (9.6-12.0); Monocytes % 4.2 % (1.7-12.7); Neutrophils % 91.5 % (38.7-73.9); Platelet Count 216 T/CUMM (130-400); Red Blood Count 2.87 MC/CUMM (3.8-5.5); White Blood Count 13.7 T/CUMM (4-12)
[2019-03-09 05:29] LABS: Calcium 8.2 MG/DL (8.5-10.1); Osmolality,Calculated 294.1 MOS/KG (273-304)
[2019-03-09 05:53] LABS: Lymphocytes 2 % (20-55); Myelocytes 1 %; Segmented Neutrophils 93 % (50-85); Total Cells Counted 100
[2019-03-09 05:54] LABS: Anisocytosis 1+
[2019-03-09 05:55] LABS: Platelet Estimate Adequate
[2019-03-09] MEDS: APIXABAN 2.5 MG TABLET PO SCH ×2 (08:18→22:38)
[2019-03-09] MEDS: ASPIRIN EC 325 MG TABLET PO SCH (08:18)
[2019-03-09] MEDS: LISINOPRIL 2.5 MG TABLET PO SCH (08:18)
[2019-03-09] MEDS: AMIODARONE 200 MG TABLET PO SCH ×2 (08:18→22:38)
[2019-03-09] MEDS: CARVEDILOL 3.125 MG TABLET PO SCH ×2 (08:18→22:38)
[2019-03-09] MEDS: methylPREDNISolone SOD SUC 40 MG/1 ML VIAL IV SCH ×2 (08:18→20:34)
[2019-03-09] MEDS: FUROSEMIDE 40 MG/4 ML VIAL IV SCH (08:21)
[2019-03-09] MEDS: FAMOTIDINE 20 MG/2 ML VIAL IV SCH ×2 (08:24→22:38)
[2019-03-09] MEDS: CHLORHEXIDINE 0.12% ORAL RINSE 60 ML BOTTLE SWISH/SPIT SCH ×2 (08:29→22:39)
[2019-03-09] MEDS: ATORVASTATIN 40 MG TABLET PO SCH (22:38)
[2019-03-10] MEDS: ALBUTEROL/IPRATROPIUM 3 ML NEB RESP TX SCH ×4 (00:26→19:27)
[2019-03-10] MEDS: PIPERACILLIN/TAZOBACTAM 3,375 MG in SODIUM CHLORIDE 0.9% 100 ML IV SCH ×3 (00:45→16:32)
[2019-03-10] MEDS: INSULIN REGULAR 100 UNIT/ML SUBCUT SCH ×4 (09:28→21:44)
[2019-03-10] MEDS: FAMOTIDINE 20 MG/2 ML VIAL IV SCH ×2 (09:31→21:46)
[2019-03-10] MEDS: FUROSEMIDE 40 MG/4 ML VIAL IV SCH (09:32)
[2019-03-10] MEDS: methylPREDNISolone SOD SUC 40 MG/1 ML VIAL IV SCH ×3 (09:32→21:45)
[2019-03-10] MEDS: LISINOPRIL 2.5 MG TABLET PO SCH (09:33)
[2019-03-10] MEDS: CARVEDILOL 3.125 MG TABLET PO SCH ×2 (09:34→21:45)
[2019-03-10] MEDS: APIXABAN 2.5 MG TABLET PO SCH (09:34)
[2019-03-10] MEDS: AMIODARONE 200 MG TABLET PO SCH ×2 (09:34→21:45)
[2019-03-10] MEDS: CHLORHEXIDINE 0.12% ORAL RINSE 60 ML BOTTLE SWISH/SPIT SCH ×2 (09:34→21:46)
[2019-03-10] MEDS: ASPIRIN EC 325 MG TABLET PO SCH (09:34)
[2019-03-10] MEDS ORDERED: POTASSIUM CHLORIDE 20 MEQ TABLET PO ONE (10:40)
[2019-03-10] MEDS: ASCORBIC ACID 500 MG TABLET PO SCH ×2 (11:12→21:45)
[2019-03-10] MEDS: ATORVASTATIN 40 MG TABLET PO SCH (21:46)
[2019-03-11] MEDS: PIPERACILLIN/TAZOBACTAM 3,375 MG in SODIUM CHLORIDE 0.9% 100 ML IV SCH ×3 (00:48→16:51)
[2019-03-11] MEDS: ALBUTEROL/IPRATROPIUM 3 ML NEB RESP TX SCH ×4 (00:58→19:49)
[2019-03-11 05:58] LABS: Basophils % 0.1 % (0.0-0.8); Hematocrit 31.9 VOL% (42.0-52.0); Hemoglobin 10.4 GM/DL (14.0-18.0); Immature Granulocytes % 2.9 %; Immature Granulocytes Absolute 0.55 #; Lymphocytes # 0.5 10*3/uL (1.4-4.0); Lymphocytes % 2.8 % (21.2-54.2); Mean Corpuscular HGB Conc 32.6 GM/DL (32-36); Mean Corpuscular Volume 99.7 FL (87-102); Monocytes % 4.3 % (1.7-12.7); NRBC # 0.02 10*3/uL; Neutrophils % 89.9 % (38.7-73.9); Platelet Count 236 T/CUMM (130-400); Red Cell Distribution Width 14.6 % (9.3-17.3); White Blood Count 18.7 T/CUMM (4-12)
[2019-03-11] MEDS ORDERED: DIAZEPAM 5 MG TABLET PO ONE (06:00)
[2019-03-11] MEDS ORDERED: diphenhydrAMINE CAP 25 MG CAPSULE PO ONE (06:00)
[2019-03-11 06:30] LABS: Hypochromasia 1+; Lymphocytes 2 % (20-55); Microcytosis Slight; Platelet Estimate Adequate; Segmented Neutrophils 95 % (50-85); Total Cells Counted 100
[2019-03-11 06:47] LABS: Calcium 8.2 MG/DL (8.5-10.1); Osmolality,Calculated 287.4 MOS/KG (273-304)
[2019-03-11] MEDS: INSULIN REGULAR 100 UNIT/ML SUBCUT SCH ×4 (08:50→21:02)
[2019-03-11] MEDS: CARVEDILOL 3.125 MG TABLET PO SCH ×2 (09:39→21:01)
[2019-03-11] MEDS: ASPIRIN EC 325 MG TABLET PO SCH (09:39)
[2019-03-11] MEDS: FUROSEMIDE 40 MG/4 ML VIAL IV SCH (09:39)
[2019-03-11] MEDS: AMIODARONE 200 MG TABLET PO SCH ×2 (09:39→21:01)
[2019-03-11] MEDS: ASCORBIC ACID 500 MG TABLET PO SCH ×2 (09:40→21:01)
[2019-03-11] MEDS: LISINOPRIL 2.5 MG TABLET PO SCH (09:40)
[2019-03-11] MEDS: FAMOTIDINE 20 MG/2 ML VIAL IV SCH ×2 (09:40→21:01)
[2019-03-11] MEDS: CHLORHEXIDINE 0.12% ORAL RINSE 60 ML BOTTLE SWISH/SPIT SCH ×2 (09:40→21:03)
[2019-03-11] MEDS ORDERED: MIDAZOLAM 2 MG/2 ML VIAL ONE (12:06)
[2019-03-11] MEDS ORDERED: HYDROmorphone 2 MG/1 ML VIAL ONE (12:06)
[2019-03-11] MEDS ORDERED: LIDOCAINE 1%/EPI INJ 20 ML VIAL ONE ×2 (12:06→12:07)
[2019-03-11] MEDS ORDERED: ceFAZolin 1,000 MG VIAL ONE (12:06)
[2019-03-11] MEDS ORDERED: TISSUE ADHESIVE 1 EACH APPLICATOR TOP ONE (13:23)
[2019-03-11] MEDS: ATORVASTATIN 40 MG TABLET PO SCH (21:01)
[2019-03-12] MEDS: PIPERACILLIN/TAZOBACTAM 3,375 MG in SODIUM CHLORIDE 0.9% 100 ML IV SCH ×3 (00:40→16:14)
[2019-03-12] MEDS: ALBUTEROL/IPRATROPIUM 3 ML NEB RESP TX SCH ×4 (00:52→19:08)
[2019-03-12 04:45] LABS: Basophils % 0.1 % (0.0-0.8); Eosinophils # 0.1 10*3/uL (0.0-0.87); Eosinophils % 0.4 % (0.00-10.9); Hematocrit 31.7 VOL% (42.0-52.0); Hemoglobin 10.3 GM/DL (14.0-18.0); Immature Granulocytes % 1.5 %; Immature Granulocytes Absolute 0.21 #; Lymphocytes # 1.2 10*3/uL (1.4-4.0); Lymphocytes % 8.4 % (21.2-54.2); Mean Corpuscular HGB Conc 32.5 GM/DL (32-36); Mean Corpuscular Volume 101.3 FL (87-102); Mean Platelet Volume 9.8 FL (9.6-12.0); Monocytes % 8.3 % (1.7-12.7); Neutrophils % 81.3 % (38.7-73.9); Platelet Count 224 T/CUMM (130-400); Red Blood Count 3.13 MC/CUMM (3.8-5.5); Red Cell Distribution Width 14.9 % (9.3-17.3); White Blood Count 13.9 T/CUMM (4-12)
[2019-03-12 05:05] LABS: Osmolality,Calculated 288.1 MOS/KG (273-304)
[2019-03-12] MEDS: INSULIN REGULAR 100 UNIT/ML SUBCUT SCH ×5 (08:00→21:57)
[2019-03-12] MEDS: AMIODARONE 200 MG TABLET PO SCH ×2 (08:15→21:54)
[2019-03-12] MEDS: CARVEDILOL 3.125 MG TABLET PO SCH ×2 (08:15→21:54)
[2019-03-12] MEDS: ASPIRIN EC 325 MG TABLET PO SCH (08:15)
[2019-03-12] MEDS: ASCORBIC ACID 500 MG TABLET PO SCH ×2 (08:15→21:53)
[2019-03-12] MEDS: LISINOPRIL 2.5 MG TABLET PO SCH (08:15)
[2019-03-12] MEDS: FUROSEMIDE 40 MG/4 ML VIAL IV SCH (08:16)
[2019-03-12] MEDS: CHLORHEXIDINE 0.12% ORAL RINSE 60 ML BOTTLE SWISH/SPIT SCH ×2 (08:20→21:52)
[2019-03-12] MEDS: FAMOTIDINE 20 MG/2 ML VIAL IV SCH ×2 (08:20→21:52)
[2019-03-12] MEDS: ATORVASTATIN 40 MG TABLET PO SCH (21:54)
[2019-03-13] MEDS: ALBUTEROL/IPRATROPIUM 3 ML NEB RESP TX SCH ×3 (00:09→12:12)
[2019-03-13] MEDS: PIPERACILLIN/TAZOBACTAM 3,375 MG in SODIUM CHLORIDE 0.9% 100 ML IV SCH ×2 (00:30→07:40)
[2019-03-13] MEDS: INSULIN REGULAR 100 UNIT/ML SUBCUT SCH ×2 (08:47→12:16)
[2019-03-13] MEDS: ASPIRIN EC 325 MG TABLET PO SCH (08:48)
[2019-03-13] MEDS: AMIODARONE 200 MG TABLET PO SCH (08:48)
[2019-03-13] MEDS: CARVEDILOL 3.125 MG TABLET PO SCH (08:48)
[2019-03-13] MEDS: ASCORBIC ACID 500 MG TABLET PO SCH (08:48)
[2019-03-13] MEDS: FAMOTIDINE 20 MG/2 ML VIAL IV SCH (08:48)
[2019-03-13] MEDS: LISINOPRIL 2.5 MG TABLET PO SCH (08:48)
[2019-03-13] MEDS: CHLORHEXIDINE 0.12% ORAL RINSE 60 ML BOTTLE SWISH/SPIT SCH (08:50)
[2019-03-13] MEDS ORDERED: FUROSEMIDE 40 MG TABLET PO SCH (09:00)
[2019-03-13 12:41] VITALS: BP 93/51
== END 2019-03-13 14:05 | disposition swing bed (61) | DRG 236 ==
LOC: EDUNIT# → EDBD → N.EDINP 15:53 → N.ED 15:53 → N.CC 17:58 → N.CVR 03-03 13:34 → N.ICU 03-04 07:50 → N.TELES 03-05 10:28
PROVIDERS: ADMIT Internal Medicine Cardiovascular Disease; ATTEND Thoracic Surgery (Cardiothoracic Vascular Surgery)

== ENCOUNTER 2021-06-13 13:30 | Inpatient (IN) ==
[2021-06-13 16:49] LABS: Basophils % 0.5 % (0.0-0.8); Eosinophils # 0.4 10*3/uL (0.0-0.87); Eosinophils % 5.5 % (0.00-10.9); Hematocrit 40.6 VOL% (42.0-52.0); Hemoglobin 13.5 GM/DL (14.0-18.0); Immature Granulocytes % 0.5 %; Immature Granulocytes Absolute 0.04 #; Lymphocytes # 1.7 10*3/uL (1.4-4.0); Lymphocytes % 23.2 % (21.2-54.2); Mean Corpuscular HGB Conc 33.3 GM/DL (32-36); Mean Corpuscular Volume 94.2 FL (87-102); Mean Platelet Volume 10.5 FL (9.6-12.0); Monocytes % 8.7 % (1.7-12.7); Neutrophils % 61.6 % (38.7-73.9); Platelet Count 182 T/CUMM (130-400); Red Blood Count 4.31 MC/CUMM (3.8-5.5); Red Cell Distribution Width 16.3 % (9.3-17.3); White Blood Count 7.3 T/CUMM (4-12)
[2021-06-13 17:03] LABS: Bacteria,Urine Occasional /HPF (Few); Bilirubin,Urine Negative (Negative); Blood, Urine Negative (Negative); Glucose,Urine (UA) Negative (Negative); Hyaline Casts,Urine 1 /LPF (0-3); Ketones,Urine Negative (Negative); Mucus,Urine Occasional /LPF (Occasional); Nitrite,Urine Negative (Negative); Protein,Urine Negative; RBC,Urine 2 /HPF (0-4); Squamous Epithelial Cell,Urine Occasional /HPF (0-10); Urine Appearance CLEAR (Clear); Urine Color Yellow (Yellow); Urine Specific Gravity 1.011 (1.001-1.035)
[2021-06-13 17:06] LABS: Albumin 2.7 G/DL (3.4-5.0); Bilirubin,Total 2.3 MG/DL (0.20-1.00); Calcium 8.5 MG/DL (8.5-10.1); Osmolality,Calculated 281.3 MOS/KG (273-304); Potassium 3.3 MMOL/L (3.5-5.1); Total Protein 6.2 G/DL (6.4-8.2)
[2021-06-13] MEDS ORDERED: SODIUM CHLORIDE 0.9% 500 ML IV STA ×2 (18:42→21:40)
[2021-06-13] MEDS ORDERED: GLUCAGON 1 MG VIAL IM PRN (20:14)
[2021-06-13] MEDS ORDERED: DOCUSATE SODIUM 100 MG CAPSULE PO PRN (20:14)
[2021-06-13] MEDS ORDERED: DEXTROSE 50% 25 GM/50 ML VIAL IV PRN (20:14)
[2021-06-13] MEDS ORDERED: ONDANSETRON 4 MG/2 ML VIAL IV PRN (20:14)
[2021-06-13] MEDS ORDERED: POTASSIUM CHLORIDE 20 MEQ TABLET PO ONE (20:29)
[2021-06-13] MEDS: ASCORBIC ACID 500 MG TABLET PO SCH (23:48)
[2021-06-13] MEDS: APIXABAN 2.5 MG TABLET PO SCH (23:48)
[2021-06-13] MEDS: LACTATED RINGERS 1,000 ML IV SCH (23:48)
[2021-06-14 05:41] LABS: Basophils % 0.4 % (0.0-0.8); Eosinophils # 0.4 10*3/uL (0.0-0.87); Eosinophils % 7.5 % (0.00-10.9); Hematocrit 35.3 VOL% (42.0-52.0); Immature Granulocytes % 0.2 %; Immature Granulocytes Absolute 0.01 #; Lymphocytes # 1.3 10*3/uL (1.4-4.0); Lymphocytes % 22.9 % (21.2-54.2); Mean Corpuscular Volume 93.6 FL (87-102); Mean Platelet Volume 10.4 FL (9.6-12.0); Monocytes % 9.3 % (1.7-12.7); Neutrophils % 59.7 % (38.7-73.9); Platelet Count 159 T/CUMM (130-400); Red Blood Count 3.77 MC/CUMM (3.8-5.5); Red Cell Distribution Width 16.4 % (9.3-17.3); White Blood Count 5.5 T/CUMM (4-12)
[2021-06-14 06:15] LABS: Alanine Aminotransferase 68 U/L (16-61); Albumin 2.3 G/DL (3.4-5.0); Alkaline Phosphatase 118 U/L (45-117); Aspartate Amino Transferase 129 U/L (0-37); Blood Urea Nitrogen 14 MG/DL (7-18); Carbon Dioxide 27 MMOL/L (21-32); Estimated Glom Filtration Rate 82 ML/MIN; Glucose 65 MG/DL (74-106); HDL Cholesterol < 10 MG/DL (40-60); Osmolality,Calculated 275.5 MOS/KG (273-304); Sodium 139 MMOL/L (136-145); Total Protein 5.2 G/DL (6.4-8.2); Triglycerides 97 MG/DL (2-150); VLDL Cholesterol 19.4 MG/DL
[2021-06-14 06:17] LABS: Potassium 2.5 MMOL/L (3.5-5.1)
[2021-06-14] MEDS: ASPIRIN EC 81 MG TABLET PO SCH (08:54)
[2021-06-14] MEDS: APIXABAN 2.5 MG TABLET PO SCH ×2 (08:54→21:30)
[2021-06-14] MEDS ORDERED: POTASSIUM CHLORIDE RIDER 10 MEQ/100 ML PREMIX IV PRN (09:37)
[2021-06-14] MEDS: predniSONE 5 MG TABLET PO SCH (10:38)
[2021-06-14] MEDS: LEVOTHYROXINE 50 MCG TABLET PO SCH (10:38)
[2021-06-14] MEDS: ASCORBIC ACID 500 MG TABLET PO SCH ×2 (10:49→21:30)
[2021-06-14] MEDS: PANTOPRAZOLE 40 MG TABLET PO SCH (10:50)
[2021-06-14] MEDS: LACTATED RINGERS 1,000 ML IV SCH (10:53)
[2021-06-14] MEDS: POTASSIUM CHLORIDE RIDER 10 MEQ/100 ML PREMIX IV PRN ×4 (10:55→21:30)
[2021-06-14] MEDS: ABIRATERONE 250 MG PO SCH (14:07)
[2021-06-14] MEDS: cefTRIAXone 1,000 MG in SODIUM CHLORIDE 0.9% 100 ML IV SCH (15:35)
[2021-06-14] MEDS ORDERED: CLORAZEPATE 7.5 MG TABLET PO PRN (21:03)
[2021-06-14] MEDS: MELATONIN 3 MG TABLET PO SCH (21:29)
[2021-06-15 04:59] LABS: Basophils % 0.5 % (0.0-0.8); Eosinophils # 0.4 10*3/uL (0.0-0.87); Hemoglobin 12.4 GM/DL (14.0-18.0); Immature Granulocytes % 0.2 %; Immature Granulocytes Absolute 0.01 #; Lymphocytes # 1.2 10*3/uL (1.4-4.0); Lymphocytes % 19.5 % (21.2-54.2); Mean Corpuscular HGB Conc 33.5 GM/DL (32-36); Mean Corpuscular Volume 94.1 FL (87-102); Mean Platelet Volume 10.4 FL (9.6-12.0); Monocytes % 7.8 % (1.7-12.7); Platelet Count 169 T/CUMM (130-400); Red Blood Count 3.93 MC/CUMM (3.8-5.5); Red Cell Distribution Width 16.5 % (9.3-17.3)
[2021-06-15] MEDS: LACTATED RINGERS 1,000 ML IV SCH ×2 (05:03→12:44)
[2021-06-15 05:27] LABS: Calcium 8.1 MG/DL (8.5-10.1); Osmolality,Calculated 279.4 MOS/KG (273-304); Potassium 3.2 MMOL/L (3.5-5.1)
[2021-06-15 05:31] LABS: Albumin 2.2 G/DL (3.4-5.0); Bilirubin,Direct 1.04 MG/DL (0.0-0.20); Bilirubin,Indirect 1.3 MG/DL (0.0-1.0); Bilirubin,Total 2.3 MG/DL (0.20-1.00); Total Protein 5.1 G/DL (6.4-8.2)
[2021-06-15] MEDS: LEVOTHYROXINE 50 MCG TABLET PO SCH (08:07)
[2021-06-15] MEDS: ASPIRIN EC 81 MG TABLET PO SCH (08:08)
[2021-06-15] MEDS: predniSONE 5 MG TABLET PO SCH (08:08)
[2021-06-15] MEDS: ASCORBIC ACID 500 MG TABLET PO SCH ×2 (08:08→20:35)
[2021-06-15] MEDS: APIXABAN 2.5 MG TABLET PO SCH ×2 (08:08→20:35)
[2021-06-15] MEDS: PANTOPRAZOLE 40 MG TABLET PO SCH (08:08)
[2021-06-15] MEDS: AMIODARONE 200 MG TABLET PO SCH ×2 (08:08→20:35)
[2021-06-15 09:01] LABS: Hepatitis B Surface Ag Quant < 0.10 Index; Hepatitis B Surface Ag Result Non-Reactive (NonReactive); Hepatitis C Virus Ab Quant 0.05 Index; Hepatitis C Virus Ab Result Non-Reactive (NonReactive)
[2021-06-15] MEDS: ABIRATERONE 250 MG PO SCH (11:14)
[2021-06-15] MEDS ORDERED: SODIUM CHLORIDE 0.9% 250 ML IV ONE (13:10)
[2021-06-15] MEDS: cefTRIAXone 1,000 MG in SODIUM CHLORIDE 0.9% 100 ML IV SCH (13:52)
[2021-06-15] MEDS: POTASSIUM CHLORIDE RIDER 10 MEQ/100 ML PREMIX IV PRN ×4 (17:19→22:05)
[2021-06-15] MEDS ORDERED: TUBERCULIN SKIN TEST 0.1 ML SYRINGE INTRADERM ONE (17:24)
[2021-06-15] MEDS: MELATONIN 3 MG TABLET PO SCH (20:34)
[2021-06-15] MEDS: GABAPENTIN 100 MG CAPSULE PO SCH (20:35)
[2021-06-16] MEDS: PANTOPRAZOLE 40 MG TABLET PO SCH (09:53)
[2021-06-16] MEDS: LEVOTHYROXINE 50 MCG TABLET PO SCH (09:54)
[2021-06-16] MEDS: ASPIRIN EC 81 MG TABLET PO SCH (09:55)
[2021-06-16] MEDS: AMIODARONE 200 MG TABLET PO SCH ×2 (09:55→20:58)
[2021-06-16] MEDS: APIXABAN 2.5 MG TABLET PO SCH ×2 (09:55→20:58)
[2021-06-16] MEDS: ASCORBIC ACID 500 MG TABLET PO SCH ×2 (09:56→20:58)
[2021-06-16] MEDS: predniSONE 5 MG TABLET PO SCH (09:56)
[2021-06-16] MEDS: POTASSIUM CHLORIDE RIDER 10 MEQ/100 ML PREMIX IV PRN ×2 (10:03→12:42)
[2021-06-16] MEDS: ABIRATERONE 250 MG PO SCH (10:03)
[2021-06-16] MEDS: cefTRIAXone 1,000 MG in SODIUM CHLORIDE 0.9% 100 ML IV SCH (14:02)
[2021-06-16] MEDS: LACTATED RINGERS 1,000 ML IV SCH ×2 (15:12→15:17)
[2021-06-16] MEDS: MELATONIN 3 MG TABLET PO SCH (20:57)
[2021-06-16] MEDS: GABAPENTIN 100 MG CAPSULE PO SCH (20:58)
[2021-06-16 23:33] LABS: Bilirubin,Total 1.1 MG/DL (0.20-1.00); Potassium 4.4 MMOL/L (3.5-5.1); Total Protein 5.1 G/DL (6.4-8.2)
[2021-06-17] MEDS: LACTATED RINGERS 1,000 ML IV SCH (04:27)
[2021-06-17 06:31] LABS: Basophils % 0.4 % (0.0-0.8); Eosinophils # 0.4 10*3/uL (0.0-0.87); Eosinophils % 5.2 % (0.00-10.9); Hematocrit 39.9 VOL% (42.0-52.0); Hemoglobin 13.2 GM/DL (14.0-18.0); Immature Granulocytes % 0.5 %; Immature Granulocytes Absolute 0.04 #; Lymphocytes # 1.3 10*3/uL (1.4-4.0); Lymphocytes % 18.1 % (21.2-54.2); Mean Corpuscular HGB Conc 33.1 GM/DL (32-36); Mean Platelet Volume 10.1 FL (9.6-12.0); Monocytes % 8.2 % (1.7-12.7); Neutrophils % 67.6 % (38.7-73.9); Platelet Count 195 T/CUMM (130-400); Red Cell Distribution Width 17.2 % (9.3-17.3); White Blood Count 7.3 T/CUMM (4-12)
[2021-06-17 07:03] LABS: Calcium 8.1 MG/DL (8.5-10.1); Osmolality,Calculated 273.5 MOS/KG (273-304); Potassium 3.7 MMOL/L (3.5-5.1)
[2021-06-17] MEDS: ASPIRIN EC 81 MG TABLET PO SCH (08:47)
[2021-06-17] MEDS: AMIODARONE 200 MG TABLET PO SCH (08:48)
[2021-06-17] MEDS: ASCORBIC ACID 500 MG TABLET PO SCH (08:48)
[2021-06-17] MEDS: APIXABAN 2.5 MG TABLET PO SCH (08:48)
[2021-06-17] MEDS: predniSONE 5 MG TABLET PO SCH (08:48)
[2021-06-17] MEDS: PANTOPRAZOLE 40 MG TABLET PO SCH (08:48)
[2021-06-17] MEDS: LEVOTHYROXINE 50 MCG TABLET PO SCH (08:48)
[2021-06-17 12:54] VITALS: BP 103/84
[2021-06-17] MEDS: cefTRIAXone 1,000 MG in SODIUM CHLORIDE 0.9% 100 ML IV SCH (13:06)
== END 2021-06-17 13:40 | DRG 641 ==
LOC: N.EDINP 13:30 → N.ED 13:30 → N.4E 21:59 → SUATTDRO 06-15 11:50
PROVIDERS: ADMIT Internal Medicine; ATTEND Internal Medicine